=== PATIENT | female | born 1975 | race Caucasian/White ===

== ENCOUNTER 2018-01-25 10:50 | Emergency (ER) | payer BC, SELFPAY ==
[2018-01-25 10:51] VITALS: BP 115/87; PULSE 71; RESP 16; TEMP 36.8; O2SAT 100; BMI 23.0
--- NOTE | 2018-01-25 11:12 | CT_ITS ---
STUDY: CT BRAIN WITHOUT CONTRAST REASON FOR EXAM: Female, 43 years old. Blurred vision. History of migraines. RADIATION DOSAGE (If Supplied By Facility): CTDIvol = ( 44.99 ) mGy, DLP = ( 711.75 ) mGycm TECHNIQUE: Transaxial CT imaging of the brain was performed without administration of intravenous contrast material. Individualized dose optimization techniques were used for this CT. COMPARISON: None. FINDINGS: Normal soft tissue structures. Normal calvarium. Normal size ventricles and extra-axial spaces for the patient's age. Normal white matter tracts of the cerebral hemispheres. Normal basal ganglia and thalami. Normal brainstem. Normal cerebellum. There is no intracranial hemorrhage. There are no findings of an acute ischemic infarction. Normal visualized paranasal sinuses. CT/Brain/Head without Contrast IMPRESSION: Normal unenhanced CT scan of the brain. Electronically Signed: Alen Gracia MD at 12:38 EDT Tel [phone], Service support ,
--- NOTE | 2018-01-25 11:14 | ED.VISSUMM ---
- ER Visit Summary Date of Service: 01/25/18 Chief Complaint: Blurry vision History of Present Illness: The patient is a 43 F who presents with blurry vision. She states it started yesterday. They moved their daughter back to [facility] and afterwards driving back she had blurry vision. She denies any pain with this. She does not wear any glasses or contact lenses. She states that she has 20/20 vision. She has a history of migraines and was on Topamax but she stopped taking that 1 week ago because it made her feel drunk. She took 1 pill of chlorzoxazone 2 days ago because of a headache. She denies any headache at this time. No eye burning or drainage. She denies any other symptoms such as dizziness, lightheadedness, slurred speech, facial droop, extremity weakness or ataxia. Physical Examination: Vital signs are reviewed. HEENT exam reveals normal eyelids. The cornea and conjunctival both appear normal. I am able to see into the back of the eye and that appears normal as well. She has no pain with extraocular motions. Her pupils are equally round and reactive. Her neurologic exam is normal. Test Results: Laboratory studies are normal. CAT scan of the head normal Emergency Department Course and Treatment: The patient's workup here is normal. I spoke with Dr. Dooley with ophthalmology. She states it is an unusual presentation with bilateral blurry vision. Her visual acuity was 20/200. Dr. Dooley would like to see the patient immediately. She will be discharged here and her will drive her to the recreational sports [facility] office. Treatment Plan: [] Disposition: Discharge Impression: Bilateral blurry vision This note was generated with [employer] dictation software. It may contain incorrect words, spelling, and punctuation that were not noted in review of the chart prior to signing ED Disposition - Plan for ED Patient: Chief Complaint: Eye Problem Referrals: Kavya Hogue [Primary Care Provider] -
[2018-01-25 11:43] LABS: Absolute Lymphocyte Count 1.45 X10^3/ul (0.83-4.51); Absolute Neutrophil Count 3.9 X10^3/uL (2.0-7.7); Basophil# 0.02 X10^3/uL; Basophil% 0.4 % (0-1); Eosinophil# 0.05 X10^3/uL; Eosinophils% 0.9 % (0-5); Hematocrit 38.6 % (37-47); Hemoglobin 12.7 g/dl (12.0-15.0); Lymphocyte # 1.45 X10^3/ul (4.0); Lymphocyte % 26.1 % (19-41); Mean Corp Hgb Conc 32.9 g/gl (32-36); Mean Corpuscular Hgb 29.3 pg (27.0-32.0); Mean Corpuscular Volume 89.1 fL (81-99); Mean Platelet Vol. 9.9 fl (6.2-12.0); Monocyte# 0.16 X10^3/uL; Monocyte% 2.9 % (0-10); Neutrophil # 3.88 X10^3/uL (2.7-7.7); Neutrophil % 69.7 % (47-70); POSITIVE COUNT NO; POSITIVE DIFFERENTIAL NO; POSITIVE MORPHOLOGY NO; Platelet Count 208 K/mm3 (150-450); RBC Distribution Width CV 12.8 % (11.6-14.6); RBC Distribution Width SD 41.5 fl (35.1-43.9); Red Blood Count 4.33 M/mm3 (4.2-5.4); White Blood Count 5.6 K/mm3 (4.4-11.0)
[2018-01-25 11:54] LABS: Anion Gap 7 (5-15); BUN 7 mg/dL (7-18); BUN/Creat Ratio 8.4 RATIO (10-20); Calcium,Total 8.6 mg/dL (8.5-10.1); Chloride 106 mmol/L (98-107); Creatinine, Serum 0.84 mg/dL (0.55-1.02); EST Glomerular Filtration Rate 78 mL/min (>60); Est Glom Filt Rate - Afr Amer 95 mL/min (>60); Estimated Creatinine Clearance 73.03 ml/min; Glucose 90 mg/dL (74-106); Sodium Level 138 mmol/L (136-145)
[2018-01-25 12:03] VITALS: PULSE 66; RESP 16; O2SAT 100
--- NOTE | 2018-01-25 13:15 | ED.DEP ---
ED Disposition - Plan for ED Patient: Disposition: Home or Assisted Living Chief Complaint: Eye Problem Instructions: ED Blurred Vision Referrals: Kavya Hogue [Primary Care Provider] -
[2018-01-25 13:20] VITALS: BP 116/83; PULSE 76; RESP 14; O2SAT 98
== END 2018-01-25 13:21 | disposition home or self-care (01) ==
PROVIDERS: Emergency Provider Emergency Medicine; Family Provider Internal Medicine Infectious Disease; PCP Internal Medicine Infectious Disease
DX: H53.8 Other visual disturbances (principal); G43.909 Migraine, unspecified, not intractable, without status migrainosus; Z79.899 Other long term (current) drug therapy
CPT/HCPCS: 70450; 80048; 85025; 99284; A4216

== ENCOUNTER 2019-06-04 11:06 | Emergency (ER) | payer BC, SELFPAY ==
[2019-06-04 11:07] VITALS: BP 119/81; PULSE 72; RESP 16; TEMP 37.1; O2SAT 100; BMI 24.5
--- NOTE | 2019-06-04 11:23 | CT_ITS ---
STUDY: CT BRAIN WITHOUT CONTRAST REASON FOR EXAM: Female, 44 years old. RT ARM WEAKNESS, HX OF MIGRAINES, NOT CURRENTLY HAVING A HEADACHE/MIGRAINE, FEELS LIKE A PINCHED NERVE RADIATION DOSAGE (If Supplied By Facility): CTDIvol = ( 44.99 ) mGy, DLP = ( 745.49 ) mGycm TECHNIQUE: Transaxial CT imaging of the brain was performed without administration of intravenous contrast material. Individualized dose optimization techniques were used for this CT. COMPARISON: 01/25/2018 FINDINGS: Normal soft tissue structures. Normal calvarium. Normal size ventricles and extra-axial spaces for the patient''s age. Normal white matter tracts of the cerebral hemispheres. Normal basal ganglia and thalami. Normal brainstem. Normal cerebellum. There is no intracranial hemorrhage. There are no findings of an acute ischemic infarction. Normal visualized paranasal sinuses. CT/Brain/Head without Contrast IMPRESSION: Normal unenhanced CT scan of the brain. Stable exam. Electronically Signed: Je Trevino MD ([place]) at 12:07 EST , Service support ,
--- NOTE | 2019-06-04 11:28 | ED.VISSUMM ---
- ER Visit Summary Date of Service: 06/04/19 Chief Complaint: Right arm weakness History of Present Illness: The patient is a 44 F who presents with right arm weakness that began yesterday morning. Patient states she woke up around 6 AM yesterday morning and was having difficulty using her right arm throughout the day yesterday. Patient states she was having difficulty brushing her hair and squeezing the shampoo bottle while she was in the shower. Patient states she was having difficulty using her right hand yesterday while she was at work. Patient states today her weakness is improved. Patient admits to a mild headache. Patient denies any facial or lower extremity weakness. Patient denies any visual changes. Patient denies any difficulty with speech. Physical Examination: Vital signs are stable. Patient is afebrile. Patient is in no acute distress. Cranial nerves II through XII are intact. Strength is 5/5 bilaterally in the upper and lower extremities. Sensation is intact light touch bilaterally in the upper and lower extremities. Extremities are intact. NIH is 0. Heart was regular rate and rhythm. Lungs are clear and equal bilaterally. Abdomen is soft. Bowel sounds are normal. There is no tenderness. Oral mucosa is pink and moist. Pupils are equal, round, and reactive to light bilaterally. Extraocular muscles are intact. Conjunctiva is clear. Neck is supple. Trachea is midline. There is no JVD. Test Results: CBC and comprehensive metabolic profile were obtained were within normal limits. CT scan of the brain was obtained and was normal. This was interpreted by the radiologist and myself. Emergency Department Course and Treatment: Patient had no further symptoms here in the emergency department. Patient was advised that this could be a TIA versus a neuropraxia that is peripheral. Patient was instructed to follow-up with her primary care physician in 3 to 5 days for further evaluation. Patient understands and is agreeable with the plan. All questions were answered. Disposition: Discharge home Impression: TIA This note was generated with [employer] dictation software. It may contain incorrect words, spelling, and punctuation that were not noted in review of the chart prior to signing ED Disposition - Plan for ED Patient: Disposition: Home or Assisted Living Diagnosis: TIA (transient ischemic attack) Instructions: T.I.A.: Transient Ischemic Attack Referrals: Kavya Houge MD [Primary Care Provider] - 3-5 Days
[2019-06-04 11:42] VITALS: BMI 24.5
[2019-06-04 11:50] LABS: Absolute Lymphocyte Count 1.64 X10^3/uL (0.83-4.51); Absolute Neutrophil Count 3.1 X10^3/uL (2.0-7.7); Basophil# 0.03 X10^3/uL; Basophil% 0.6 % (0-1); Eosinophil# 0.08 X10^3/uL; Eosinophils% 1.5 % (0-5); Hematocrit 41.1 % (37-47); Hemoglobin 13.2 g/dL (12.0-15.0); Lymphocyte # 1.64 X10^3/ul (4.0); Lymphocyte % 31.4 % (19-41); Mean Corp Hgb Conc 32.1 g/dL (32-36); Mean Corpuscular Hgb 29.2 pg (27.0-32.0); Mean Corpuscular Volume 90.9 fL (81-99); Mean Platelet Vol. 10.2 fl (6.2-12.0); Monocyte# 0.36 X10^3/uL; Monocyte% 6.9 % (0-10); NRBC Flagged by Analyzer 0 % (0-5); Neutrophil % 59.4 % (47-70); Platelet Count 201 K/mm3 (150-450); RBC Distribution Width CV 12.6 % (11.6-14.6); RBC Distribution Width SD 41.2 fl (35.1-43.9); Red Blood Count 4.52 M/mm3 (4.2-5.4); White Blood Count 5.2 K/mm3 (4.4-11.0)
[2019-06-04 11:59] LABS: ALB/GLOB Ratio 1.1 RATIO (0.9-2.4); AST(SGOT) 19 U/L (15-37); Alanine Aminotransfer ALT/SGPT 26 U/L (13-56); Albumin, Serum 3.9 g/dL (3.2-5.0); Alkaline Phosphatase 65 U/L (45-117); Anion Gap 3 (5-15); BUN 13 mg/dL (7-18); BUN/Creat Ratio 15.4 RATIO (10-20); Calcium,Total 8.5 mg/dL (8.5-10.1); Chloride 109 mmol/L (98-107); Creatinine, Serum 0.84 mg/dL (0.55-1.02); EST Glomerular Filtration Rate 77 mL/min (>60); Est Glom Filt Rate - Afr Amer 94 mL/min (>60); Estimated Creatinine Clearance 72.26 ml/min; Globulin 3.4 g/dL (2.2-4.2); Glucose 96 mg/dL (74-106); Potassium 4.1 mmol/L (3.5-5.1); Protein, Total 7.3 g/dL (6.4-8.2); Sodium Level 141 mmol/L (136-145)
[2019-06-04 12:25] LABS: Bedside Glucose 64 mg/dL (70-110)
[2019-06-04 12:32] VITALS: BP 104/72; PULSE 68; RESP 19; O2SAT 100
[2019-06-04 13:32] VITALS: BP 103/76; PULSE 83; RESP 14; O2SAT 97
== END 2019-06-04 13:33 | disposition home or self-care (01) ==
PROVIDERS: Emergency Provider Emergency Medicine; PCP Internal Medicine Infectious Disease
DX: G45.9 Transient cerebral ischemic attack, unspecified (principal); G43.909 Migraine, unspecified, not intractable, without status migrainosus; Z79.899 Other long term (current) drug therapy
CPT/HCPCS: 70450; 80053; 82962; 85025; 99283; A4216